=== PATIENT | female | born 1940 | race Caucasian/White ===

== ENCOUNTER 2021-10-15 09:42 | Emergency (ER) | payer MEDICARE, SELFPAY ==
--- NOTE | ~2021-10-15 | CT_ITS ---
EXAMINATION: CT abdomen pelvis w con DATE: 10/15/2021 13:08 INDICATION: Lower abdominal pain. TECHNIQUE: Computed tomography (CT) of the abdomen and pelvis was performed with 100 mL Omnipaque-350 intravenous contrast. Automated exposure control and iterative reconstruction technique were employe d. The dose-length product was 319.19 mGy-cm. COMPARISON: None FINDINGS: Small left and small to moderate-sized right pleural effusions with atelectasis in the bilateral lowe r lobes and to lesser degree the lingula and right middle lobe. Moderate cardiomegaly with prominent biatrial enlargement. Atherosclerotic coronary artery calcification. No pericardial effusion. Multipl e hepatic and splenic calcific lesions consistent with old granulomatous disease. Lobular contour to the bilateral kidneys with scattered small regions of parenchymal scarring at both kidneys likely seq uela of prior infection or infarction. There is moderate colonic diverticulosis with a sigmoid predom inance. There is no adjacent inflammatory change to suggest diverticulitis. Small bowel and appendix are normal. Bladder, anteverted uterus and bilateral adnexa are unremarkable. No abscess or free int raperitoneal gas. No pathologically enlarged abdominal or pelvic lymphadenopathy. Mild S-shaped curva ture of the lumbar spine with severe spondylosis. Abdominal and pelvic mild body wall edema. IMPRESSION: 1. Small to moderate right and small left pleural effusions and small amount of ascites. 2. Cardiomegaly. 3. Diverticulosis. 4. Diffuse hepatic steatosis. Reviewed, dictated and finalized at location A. [employer]
[2021-10-15 09:46] VITALS: BP 162/85; PULSE 87; RESP 20; TEMP 36.4; O2SAT 100
[2021-10-15 11:30] VITALS: BP 181/104; PULSE 84; RESP 20; TEMP 36.8; O2SAT 99
[2021-10-15 12:00] LABS: Basophils Absolute Auto 0.1 K/mm3 (0.0-0.1); Basophils Percent Auto 1.1 % (0.2-1.2); Eosinophils Absolute Auto 0.1 K/mm3 (0-0.3); Eosinophils Percent Auto 1.6 % (0-4.4); Hematocrit 37.4 % (37.0-47.0); Immature Granulocyte Absolute 0.02 K/mm3 (0.00-0.031); Immature Granulocyte Percent A 0.2 % (0-0.5); Lymphocytes Absolute Auto 1.53 K/mm3 (0.9-3.2); Lymphocytes Percent Auto 18.8 % (18.3-44.2); Mean Corpuscular HGB Conc 32.1 g/dl (32-36); Mean Corpuscular Hemoglobin 29.9 pg (26-34); Mean Corpuscular Volume 93.3 fl (80-100); Mean Platelet Volume 9.6 fl (7.4-10.4); Monocytes Absolute Auto 0.7 K/mm3 (0.1-0.6); Monocytes Percent Auto 8.6 % (2.6-8.5); Neutrophils Absolute Auto 5.7 K/mm3 (1.3-6.7); Neutrophils Percent Auto 69.7 % (45.5-73.1); Platelet Count Result 363 k/mm3 (150-375); Red Blood Count 4.01 M/mm3 (4.2-5.4); Red Cell Distribution Width 13.8 % (11.5-14.5); White Blood Count 8.1 K/mm3 (4.5-10.0)
[2021-10-15 12:13] LABS: Alanine Aminotransferase 22 U/L (4-35); Albumin Level 3.7 g/dL (3.5-5.1); Alkaline Phosphatase 183 U/L (38-126); Anion Gap 9 mmol/L (8-16); Aspartate Amino Transferase 37 U/L (14-36); Bilirubin,Total 1.1 mg/dL (0.2-1.3); Blood Urea Nitrogen 23 mg/dL (7-17); Calcium 9.2 mg/dL (8.4-10.2); Carbon Dioxide 21 mmol/L (22-30); Chloride 102 mmol/L (98-107); Estimated CRCL calculation 30 ml/min; Estimated Glomerular Filt Rate 43; Glucose 104 mg/dL (65-110); Lipase 79 U/L (23-300); Potassium 4.2 mmol/L (3.4-5.0); Sodium 132 mmol/L (137-145)
[2021-10-15 12:16] LABS: Add Urine Microscopic? YES; Appearance Urine Cloudy (Clear); Bacteria Urine Trace /hpf; Bilirubin Urine Negative (Negative); Blood Urine 1+ (Negative); Color Urine Yellow (Yellow); Glucose Urine UA Negative (Negative); Ketones Urine Negative (Negative); Leukocyte Esterase Ur 1+ LEU/UL (Negative); Mucus Urine Rare /lpf; Nitrate Urine Negative (Negative); Protein Urine 1+ mg/dL (Negative); Specific Grav Ur 1.011 (1.001-1.035); Squamous Epithelial Cell Urine Rare /hpf (Few); Urobilinogen Urine Negative mg/dL (<2.0)
[2021-10-15 13:12] VITALS: BP 176/95; PULSE 84; RESP 26; O2SAT 97
[2021-10-15] MEDS: SODIUM CHLORIDE 0.9% IV 1,000 ML 999 ML IV CONT (13:12)
[2021-10-15 13:32] LABS: Lactic Acid Reflex 1.2 mmol/L (0.7-2.1)
--- NOTE | 2021-10-15 13:35 | ED.ABDPAIN ---
HPI - Abdominal Pain General Chief Complaint: Abdominal Pain Stated Complaint: Abd Pain Time Seen by Provider: 10/15/21 12:00 Source: patient and RN notes reviewed Mode of arrival: ambulatory Limitations: other (poor historian) History of Present Illness HPI narrative: This is a 81 year old female who presents for evaluation of diffuse abdominal pain. She states she has not seen a doctor in years due to having bad experience per patient. She has come to ER today because of diffuse pain starting yesterday. Her pain is constant and it seems to be worse at night. She denies fever, chills, nausea, vomiting, diarrhea. She also denies hematuria or cloudy urine. She does complain of right lower abdominal pain when she urinates since yesterday. She states she was told she had prolapse bladder years ago. She denies urinary incontinence or urinary hesitancy. She is taking Aleve for your pain. She does report years ago she was started on seizure medication but she stopped taking once she ran out. Related Data Allergies Allergy/AdvReac Type Severity Reaction Status Date / Time No Known Allergies Allergy Verified 10/15/21 11:29 Review of Systems Review of Systems: All systems reviewed & are unremarkable except as noted in HPI and below PMFSH Past Medical History Medical History (Updated 10/15/21 @ 14:42 by Quin Hernandez MD) Seizures Surgical History Surgical History (Updated 10/15/21 @ 13:40 by Quin Hernandez MD) Hx of cholecystectomy Social History Social History (Updated 10/15/21 @ 13:40 by Quin Hernandez MD) Smoking status: Never smoker Exam Const: General: no acute distress and alert Orientation/consciousness: patient oriented x3 Eyes: EOM: EOMs intact bilaterally Resp: Effort & Inspection: normal respiratory effort and no retractions Auscultation: clear to auscultation bilaterally Cardio: Rate: regular rate Rhythm: regular rhythm Heart sounds: no murmurs GI: Inspection: distended GI Palp: Yes Soft to palpation, Yes Tenderness to palpation present (GI) (Diffuse), Yes Guarding due to palpation present (GI) and No Rigid due to palpation Auscultation: normal bowel sounds Skin: General skin exam: normal color Rashes: no rashes Neuro: General: patient oriented x3, moves all extremities and CN's II-XI intact bilaterally Psych: Mental Status: mental status grossly normal Affect: normal affect Course Reevaluation(s) Reevaluation #1: I have stressed to patient that she needs to follow up with Dr. Velazquez and she needs to take antihypertensive medication given renal disease and signs of possible heart failure. LFTs unremarkable. Date: 10/15/21 Time: 14:40 Consultations Consultation #1: I Spoke with Dr. 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 He recommends starting lisinopril for patient's hypertension and he will follow patient. I told him labs and CT findings. Date: 10/15/21 Time: 14:42 Vital Signs Vital signs: Vital Signs Temperature 97.5 F L 10/15/21 09:46 Pulse Rate 87 10/15/21 09:46 Respiratory Rate 20 10/15/21 09:46 Blood Pressure 162/85 H 10/15/21 09:46 Pulse Oximetry 100 10/15/21 09:46 Temperature 98.3 F 10/15/21 11:30 Pulse Rate 91 10/15/21 15:20 Respiratory Rate 18 10/15/21 15:20 Blood Pressure 182/89 H 10/15/21 15:20 Pulse Oximetry 99 10/15/21 15:20 MDM - Abdominal Pain Lab Data Attestation: I reviewed the patient's lab results. Result diagrams: 10/15/21 11:51 10/15/21 11:51 Labs: Lab Results 10/15/21 10/15/21 10/15/21 Range/Units 11:51 11:51 12:05 WBC 8.1 (4.5-10.0) K/mm3 RBC 4.01 L (4.2-5.4) M/mm3 Hgb 12.0 (12.0-15.0) g/dL Hct 37.4 (37.0-47.0) % MCV 93.3 (80-100) fl MCH 29.9 (26-34) pg MCHC 32.1 (32-36) g/dl RDW 13.8 (11.5-14.5) % Plt Count 363 (150-375) k/mm3 MPV 9.6 (7.4-10.4) fl Immature Gran % (Auto) 0.2 (0-0.5) % Neut % (Auto) 69.7 (
[2021-10-15 15:20] VITALS: BP 182/89; PULSE 91; RESP 18; O2SAT 99
== END 2021-10-15 15:36 | disposition home or self-care (01) ==
PROVIDERS: Emergency Medicine; Emergency Provider General Practice
DX: N39.0 Urinary tract infection, site not specified (principal); I10 Essential (primary) hypertension; R10.9 Unspecified abdominal pain; R56.9 Unspecified convulsions; Z90.49 Acquired absence of other specified parts of digestive tract
CPT/HCPCS: 36415; 51701; 74177; 80053; 81001; 83605; 83690; 85025; 87077; 87086; 87186; 96365; 99284; J0131; J7030; Q9967

== ENCOUNTER 2022-08-10 13:25 | Emergency (ER) | payer OTHER, MEDICARE, SELFPAY ==
[2022-08-10] VITALS (14 sets, daily range): BP systolic 126–156; BP diastolic 63–99; PULSE 80–107; RESP 16–33; TEMP 36.4; O2SAT 85–98
--- NOTE | ~2022-08-10 | CT_ITS ---
EXAMINATION: CT brain wo con DATE: 08/10/2022 15:29 INDICATION: Altered mental status. TECHNIQUE: Computed tomography (CT) of the head was performed without intravenous contrast. The mA wa s adjusted according to patient size. Iterative reconstruction technique was employed. The dose-lengt h product was 756.67 mGy-cm. COMPARISON: None FINDINGS: There is an old lacunar infarct in the right basal ganglia. There is an old infarct involvi ng the left frontal lobe and left insula. There are scattered areas of low attenuation in the cerebra l white matter. There is no intracranial hemorrhage, acute infarction, or abnormal intracranial mass lesion. The ventricles are normal in size. There is mild mucosal thickening in the paranasal sinuses. The mastoid air cells are normal. IMPRESSION: 1. 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 2. Moderate nonspecific cerebral white matter disease, which likely represents chronic small vessel i schemic disease. Reviewed, dictated and finalized at location A. IMPRESSION: 1. Old infarcts involving the left frontal lobe, left insula, and right basal g anglia. 2. Moderate nonspecific cerebral white matter disease, which likely represents chronic small vessel ischemic disease.
--- NOTE | ~2022-08-10 | CT_ITS ---
EXAMINATION: CT abdomen pelvis w con INDICATION: Abdominal pain and distention TECHNIQUE: Computed tomographic images of the abdomen and pelvis were obtained after the administrati on of 100 cc of Omnipaque 350 intravenous contrast. The dose-length product (DLP) was 884.92 mGy-cm. Automated exposure control and iterative reconstruction technique were employed. COMPARISON: 10/15/2021 FINDINGS: There are small pleural effusions, right greater than left. Cardiomegaly is noted. There is diffuse anasarca. There are interstitial and airspace opacities of the right middle and lower lobes and lingula. There is a moderate volume of ascites. The gallbladder is surgically absent. Punctate ca lcifications in otherwise normal appearing liver and spleen likely represent healed granulomatous dis ease. The pancreas is normal. There is mild chronic enlargement of the adrenal glands. There are mult iple areas of cortical scarring in the kidneys. No pathologically enlarged abdominal or pelvic lymph nodes are identified. There is calcified atherosclerosis of the aorta and many of the other arteries. There is no free intraperitoneal gas or evidence of bowel obstruction. Colonic diverticulosis is pre sent without evidence of diverticulitis. There is severe lumbar spondylosis. There is medial right g luteal soft tissue gas. IMPRESSION: 1. Moderate volume of ascites. 2. Diffuse anasarca. 3. Cardiomegaly with probable pulmonary edema. 4. Medial right gluteal soft tissue gas, correlate for infection.. Reviewed, dictated and finalized at location A.
--- NOTE | ~2022-08-10 | XR_ITS ---
EXAMINATION: XR chest 1V portable DATE: 08/10/2022 15:14 INDICATION: Altered mental status. TECHNIQUE: A single frontal view of the chest was obtained. COMPARISON: CT abdomen and pelvis 10/15/2021 FINDINGS: There are airspace opacities in the mid and lower lung zones and right worse than left. The re is a small right pleural effusion. No pneumothorax. Cardiomegaly is noted. Surgical clips in the r ight upper quadrant are likely from cholecystectomy. IMPRESSION: 1. Airspace opacities in the mid and lower lung zones, right worse than left, consistent with atelect asis versus pneumonia. 2. Small right pleural effusion. 3. Cardiomegaly. Reviewed, dictated and finalized at location A. IMPRESSION: 1. Airspace opacities in the mid and lower lung zones, right worse than left, c onsistent with atelectasis versus pneumonia. 2. Small right pleural effusion. 3. Cardiomegaly.
--- NOTE | 2022-08-10 13:33 | ECG_ITS ---
Measurements Intervals [place] Rate: 101 P: 91 WA: 167 QRS: -8 QRSD: 97 T: 180 QT: 354 QTc: 461 Interpretive Statements SINUS TACHYCARDIA VENTRICULAR PREMATURE COMPLEX POSSIBLE LEFT ATRIAL ENLARGEMENT LOW QRS VOLTAGE IN LIMB LEADS CONSIDER INFERIOR INFARCT, AGE INDETERMINATE ANTEROSEPTAL INFARCT, AGE INDETERMINATE ST-T WAVE ABNORMALITY IN LAT/HIGH LAT LEADS- CONSIDER ISCHEMIA ABNORMAL ECG NO PREVIOUS ECG AVAILABLE FOR COMPARISON Electronically Signed On 08-10-2022 14:31:09 CDT by Max Caballero D.O.
--- NOTE | 2022-08-10 13:34 | ED.GENADULT ---
HPI - General Adult General Chief complaint: Altered Mental Status Stated complaint: AMS, edema to body History of Present Illness HPI narrative: This is an 82 year old female presenting to ED with altered mental status and a total body swelling. Patient lives at home with a daughter who is not here. She is unable to provide very much history. Per the patient's family patient is not taking her Lasix approximately 1 week ago. Since then she has had increased total body swelling. Approximately 2-3 days ago her mental start status has started to decrease. Usually the patient is A&O x3 and at this time she can just tell me her name. Related Data Home Medications Medication Instructions Recorded Confirmed acetaminophen 325 mg tablet mg 08/10/22 aspirin 81 mg chewable tablet 08/10/22 dapagliflozin 10 mg tablet mg 08/10/22 (Farxiga) furosemide 20 mg tablet mg 08/10/22 furosemide 40 mg tablet mg 08/10/22 lorazepam 0.5 mg tablet mg 08/10/22 morphine concentrate 100 mg/5 mL mg 08/10/22 (20 mg/mL) oral solution sacubitril 24 mg-valsartan 26 mg tablet 08/10/22 tablet (Entresto) Allergies Allergy/AdvReac Type Severity Reaction Status Date / Time No Known Allergies Allergy Verified 10/15/21 11:29 Review of Systems Review of Systems: ROS unobtainable: Yes unobtainable due to medical condition PMFSH Past Medical History Medical History (Updated 08/10/22 @ 18:11 by Musa Cota MD) Heart failure Seizures Surgical History Surgical History (Updated 10/15/21 @ 13:40 by Quin Hernandez MD) Hx of cholecystectomy Social History Social History (Updated 10/15/21 @ 13:40 by Quin Hernandez MD) Smoking status: Never smoker Exam Narrative: APPEARANCE: patient is lying in bed. She appears uncomfortable. Head atraumatic. EYES: PERRLA/EOMI, patient has swelling of her left eyelid NOSE: Normal no drainage NECK: Supple, Trachea midline RESPIRATORY: Patient is tachypneic, she has bilateral rales. CARDIOVASCULAR: S1S2 appreciated Patient has swelling of the abdomen with edema of the arms and legs ABDOMINAL: abdomen is distended and tender, no guarding or rebound MUSCULOSKELETAl: No obvious deformities NEURO: Alert. Moving 4/4 extremities SKIN:: Warm, dry. Normal color PSYCHIATRIC: Normal affect Course Vital Signs Vital signs: Vital Signs Temperature 97.5 F L 08/10/22 13:24 Pulse Rate 107 H 08/10/22 13:24 Respiratory Rate 24 H 08/10/22 13:24 Blood Pressure 152/98 H 08/10/22 13:24 Pulse Oximetry 94 08/10/22 13:24 Oxygen Delivery Room Air 08/10/22 13:24 Temperature 97.5 F L 08/10/22 13:24 Pulse Rate 100 08/10/22 17:46 Respiratory Rate 24 H 08/10/22 17:46 Blood Pressure 150/99 H 08/10/22 17:46 Pulse Oximetry 98 08/10/22 17:46 Oxygen Delivery Room Air 08/10/22 13:24 Procedures Pulse Oximetry Interpretation Digit-Finger: Initial pulse oximetry readin Pulse Oximetry: 94 Actions Taken: increased FIO2 to (2l nc) Medical Decision Making MDM Narrative Medical decision making narrative: This is an 82-year-old female presenting to ED with altered mental status. Initial assessment revealed that the patient was tachypneic and hypoxic on room air with a pulse ox at 89-90%. She is placed on 2 L O2. Patient's history and physical are consistent with fluid overload, However due to her advanced age in altered mental status a broad workup has been ordered. Patient will be given 40 mg of IV Lasix. After the initial workup was obtained was informed the family that the patient is actually hospice and that they have hospice delivering medical equipment at home today. Patient's workup here was significant for elevated white blood cell count of 14.3. BMP was within normal limits with normal kidney function. Patient has a mildly elevated tropes at 0.295. Patient's BNP is greater than 35,000 which is consistent with t
[2022-08-10] MEDS: FUROSEMIDE INJ 40 MG/4 ML VIAL IV PUSH (14:12)
[2022-08-10 14:26] LABS: Basophils Absolute Auto 0.1 K/mm3 (0.0-0.1); Basophils Percent Auto 0.4 % (0.2-1.2); Eosinophils Percent Auto 0.3 % (0-4.4); Hematocrit 42.9 % (37.0-47.0); Hemoglobin 13.4 g/dL (12.0-15.0); Immature Granulocyte Absolute 0.15 K/mm3 (0.00-0.031); Immature Granulocyte Percent A 1.1 % (0-0.5); Lymphocytes Absolute Auto 1.24 K/mm3 (0.9-3.2); Lymphocytes Percent Auto 8.7 % (18.3-44.2); Mean Corpuscular HGB Conc 31.2 g/dl (32-36); Mean Corpuscular Hemoglobin 28.2 pg (26-34); Mean Corpuscular Volume 90.3 fl (80-100); Mean Platelet Volume 10.3 fl (7.4-10.4); Monocytes Absolute Auto 0.7 K/mm3 (0.1-0.6); Monocytes Percent Auto 4.9 % (2.6-8.5); Neutrophils Absolute Auto 12.1 K/mm3 (1.3-6.7); Neutrophils Percent Auto 84.6 % (45.5-73.1); Nucleated Red Blood Cells Absolute Auto 0.3 K/mm3 (0.0-0.012); Nucleated Red Blood Cells Perc 2.3 % (0.0-0.2); Platelet Count Result 264 k/mm3 (150-375); Red Blood Count 4.75 M/mm3 (4.2-5.4); Red Cell Distribution Width 20.2 % (11.5-14.5); White Blood Count 14.3 K/mm3 (4.5-10.0)
[2022-08-10 14:37] LABS: Lactic Acid Reflex 1.9 mmol/L (0.7-2.0)
[2022-08-10 14:38] LABS: Alanine Aminotransferase 26 U/L (6-35); Albumin Level 3.2 g/dL (3.5-5.1); Alkaline Phosphatase 132 U/L (38-126); Anion Gap 9 mmol/L (8-16); Aspartate Amino Transferase 45 U/L (14-36); Bilirubin,Total 4.8 mg/dL (0.2-1.3); Blood Urea Nitrogen 37 mg/dL (7-17); Calcium 8.8 mg/dL (8.4-10.2); Carbon Dioxide 28 mmol/L (22-30); Chloride 102 mmol/L (98-107); Estimated CRCL calculation 30 ml/min; Estimated Glomerular Filt Rate 43; Glucose 89 mg/dL (65-110); Lipase 61 U/L (23-300); Magnesium 2.3 mg/dL (1.6-2.3); Potassium 4.2 mmol/L (3.4-5.0); Sodium 139 mmol/L (137-145)
[2022-08-10 14:41] LABS: INR 1.4; Prothrombin Time 16.3 Seconds (11.1-14.7)
[2022-08-10 14:42] LABS: Partial Thromboplastin Time 34.2 SECONDS (22.3-36.8)
[2022-08-10 14:43] LABS: Appearance Urine Slightly Cloudy (Clear); Bilirubin Urine 2+ (Negative); Blood Urine Negative (Negative); Color Urine Yellow (Yellow); Glucose Urine UA Negative (Negative); Ketones Urine Trace mg/dL (Negative); Leukocyte Esterase Ur Negative LEU/UL (Negative); Nitrate Urine Negative (Negative); Protein Urine 1+ mg/dL (Negative); pH Urine 5.5 (5.0-9.0)
[2022-08-10 14:51] LABS: NT Pro B Type Natriuretic Pept > 35000 pg/mL (5-100)
[2022-08-10 14:55] LABS: Amorphous Sediment Urine Few; Bacteria Urine Trace /hpf; Mucus Urine Rare /lpf; Squamous Epithelial Cell Urine Rare /hpf (Few); WBC Urine 0-3 /hpf
[2022-08-10 14:58] LABS: Troponin I 0.295 ng/mL (0.000-0.034)
[2022-08-10 14:59] LABS: Add Urine Microscopic? YES
== END 2022-08-10 18:30 | disposition hospice, home (50) ==
PROVIDERS: Emergency Provider Emergency Medicine
DX: R41.82 Altered mental status, unspecified (principal); I50.9 Heart failure, unspecified; F05 Delirium due to known physiological condition; L89.313 Pressure ulcer of right buttock, stage 3
CPT/HCPCS: 36415; 51701; 70450; 71045; 74177; 80053; 81001; 83605; 83690; 83735; 83880; 84484; 85025; 85610; 85730; 87040; 93005; 96374; 99284; J1940; Q9967